=== PATIENT | female | born 2000 | race Two or more races ===

== ENCOUNTER 2019-11-04 23:21 | Emergency (ER) | payer MEDICAID ==
[~2019-11-04] VITALS: Ht 165.1 cm; Wt 73.0 kg
[2019-11-05] MEDS ORDERED: SODIUM CHLORIDE 0.9% 500 ML IV ONE (00:30)
[2019-11-05 00:49] LABS: BASOPHILS % 0.3 % (0.0-2.0); EOSINOPHILS % 0.1 % (0.0-5.0); HEMATOCRIT. 30.9 % (36.0-48.0); HEMOGLOBIN. 10.7 g/dL (12.0-16.0); LYMPHOCYTES % 33.5 % (20.0-50.0); MEAN CORPUSCULAR HEMOGLOBIN 28.6 pg (28.0-32.0); MEAN CORPUSCULAR VOLUME 82.6 fL (81.0-99.0); MEAN PLATELET VOLUME 7.6 fl (7.4-10.4); MONOCYTES % 6.8 % (2.0-8.0); NEUTROPHILS % 59.3 % (40.0-76.0); PLATELET 205 x1000/uL (130-400); RED BLOOD CELL COUNT 3.74 mill/uL (4.2-5.4); RED CELL DISTRIBUTION WIDTH 17.6 % (11.6-14.6)
[2019-11-05 00:53] LABS: CLARITY URINE TURBID (CLEAR); COLOR URINE YELLOW (YELLOW); KETONES URINE NEGATIVE (NEGATIVE); LEUKOCYTE ESTERASE URINE 3+ (NEGATIVE); NITRITE URINE NEGATIVE (NEGATIVE); OCCULT BLOOD URINE NEGATIVE (NEGATIVE); PH URINE 8.5 (4.5-8.0); PROTEIN URINE TRACE (NEGATIVE); SPECIFIC GRAVITY URINE 1.013 (1.005-1.030)
[2019-11-05 00:55] LABS: CHLORIDE 106 mEq/L (98-107)
[2019-11-05 00:57] LABS: INR 0.9
[2019-11-05] MEDS ORDERED: ACETAMINOPHEN 650MG/20.3ML UDC PO ONE (01:15)
[2019-11-05 02:15] VITALS: BP 94/56
== END 2019-11-05 02:16 | disposition home or self-care (01) ==
LOC: ER 23:21
DX: O23.32 Infections of other parts of urinary tract in pregnancy, second trimester (principal); Z3A.20 20 weeks gestation of pregnancy; Z88.2 Allergy status to sulfonamides
CPT/HCPCS: 36415; 76805; 80053; 81003; 81025; 83690; 85025; 85610; 87086; 99284; J7040